=== PATIENT | male | born 1980 ===

== ENCOUNTER → 2016-07-18 | Outpatient (CLI) | payer SELFPAY ==
--- OUTSIDE RECORDS SUMMARY | 2016-07-18 06:06 | XMS REPORT | Referral Summary ---
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, uncomplicated Discharge Disposition: 01-Home or Self Care Attending Physician: Hugh Hernandez JR, MD Admitting Physician: Hugh Hernandez JR, MD Vital Signs Most recent to 1 oldest [Reference Range]: Temperature Oral 37.0 degC [35.8-37.3 degC] (04/21/15 12:57 PM) Peripheral Pulse 102 bpm Rate [60-100 bpm] *HI* (04/21/15 1:35 PM) Heart Rate Monitored 93 bpm [60-100 bpm] (04/21/15 4:10 PM) Respiratory Rate 18 br/min [14-20 br/min] (04/21/15 12:57 PM) Blood Pressure 143/79 mmHg [90-140/60-90 mmHg] *HI* (04/21/15 4:10 PM) Mean Arterial 90 mmHg Pressure, Cuff (04/21/15 4:10 PM) SpO2 97 % (04/21/15 4:10 PM) Problem List Condition Effective Dates Status Health Status Informant HTN Active patient (hypertension)(Confi rmed) Schizoaffective Active patient disorder(Confirmed) Tobacco Active patient user(Confirmed) Allergies, Adverse Reactions, Alerts No Known Medication Allergies Medications amLODIPine 10 mg oral tablet 10 mg 1 tabs, Oral, Daily, # 30 tabs, 0 Refill(s) Start Date: 06/17/15 Status: OrderedNorvasc Oral, Daily, 0 Refill(s) Start Date: 04/21/15 Status: OrderedNorvasc 5 mg oral tablet 5 mg 1 tabs, Oral, Daily, # 14 tabs, 0 Refill(s) Start Date: 09/26/15 Stop Date: 10/10/15 Status: Ordered Results Chemistry Most recent to 1 oldest [Reference Range]: Sodium Lvl [136-144 133 mEq/L mEq/L] *LOW* (04/21/15 2:36 PM) Potassium Lvl 3.3 mEq/L [3.6-5.1 mEq/L] *LOW* (04/21/15 2:36 PM) Chloride [99-109 101 mEq/L mEq/L] (04/21/15 2:36 PM) CO2 [22-32 mEq/L] 22 mEq/L (04/21/15 2:36 PM) AGAP [3-20] 10 (04/21/15 2:36 PM) BUN [4-20 mg/dL] 10 mg/dL (04/21/15 2:36 PM) Glucose Lvl [70-100 88 mg/dL mg/dL] (04/21/15 2:36 PM) Creatinine Lvl 1.13 mg/dL [0.64-1.27 mg/dL] (04/21/15 2:36 PM) eGFR [>60] >60 1 (04/21/15 2:36 PM) Calcium Lvl 8.7 mg/dL [8.6-10.0 mg/dL] (04/21/15 2:36 PM) Total CK [49-397 988 U/L U/L] *HI* (04/21/15 2:36 PM) 1Result Comment: Multiply eGFR results by 1.21 for race. Immunizations Vaccine Date Refusal Reason tetanus-diphth toxoids (Td) adult/adol 06/04/05 tetanus-diphth toxoids (Td) adult/adol 10/26/04 Procedures Procedure Date Related Diagnosis Body Site Shoulder joint operations Social History Social History Type Response Smoking Status Current every day smoker; Tobacco use per day: 1 Pack Assessment and Plan No data available for this section
== END ==
LOC: PREOP 06:04
PROVIDERS: ATTEND Surgery
DX: Z01.818 Encounter for other preprocedural examination (principal); K92.0 Hematemesis